=== PATIENT | male | born 1995 | race Caucasian/White ===

== ENCOUNTER 2017-12-03 22:35 | Emergency (ER) | payer SELFPAY ==
[~2017-12-03] VITALS: Ht 172.7 cm; Wt 70.0 kg
[2017-12-03] MEDS ORDERED: SODIUM CHLOR 0.9% 1000 ML INJ 1,000 ML IV ONE (22:53)
[2017-12-03 22:54] VITALS: BP 123/81; PULSE 103; RESP 16; TEMP 98.3; O2SAT 99
[2017-12-03 22:57] VITALS: RESP 16; O2SAT 99
[2017-12-03] MEDS ORDERED: SODIUM CHLORIDE 0.9% FLUSH 10 ML FLUSH IVF PRN (23:00)
[2017-12-03 23:50] LABS: BICARBONATE 25.2 MEQ/L (21.0-32.0); BLOOD UREA NITROGEN 10 MG/DL (7-18); CALCIUM 8.5 MG/DL (8.5-10.1); CHLORIDE 103 MEQ/L (98-107); CREATININE 1.23 MG/DL (0.60-1.30); GLOMERULAR FILTRATION RATE 74 ML/MIN (>89); GLUCOSE,RANDOM 93 MG/DL (74-106); SODIUM (NA) 140 MEQ/L (136-145)
[2017-12-03 23:56] LABS: ACETAMINOPHEN LESS THAN 2.0 MCG/ML (10.0-30.0)
--- NOTE | 2017-12-03 23:59 | PD ---
HPI Chief Complaint: Alcohol/Drug Intoxication Time Seen by Provider: 22:48 Travel History International Travel<30 days: No Contact w/Intl Traveler<30days: No Traveled to known affect area: No History of Present Illness HPI 22yo M presents to the ED via EMS for possible alcohol intoxication. Pt was found in a motel on [address] after police responded to a call because his friends were creating a commotion. Upon arrival, EMS states the pt was a GCS of 5, vital were within normal limits and O2 sat of 100% on room air. Pt was given 2mg of Narcan en route to the ED, without any response. Upon arrival to the hospital, pt became slightly more responsive to external stimuli but maintained a GCS of 5 with stable vitals. [facility] Past Medical History Medical History: Unable to Obtain Immunizations Current: Yes Past Surgical History Surgical History: Unable to Obtain Social History Alcohol Use: Yes Tobacco Use: No Substance Use: No Allergies-Medications (Allergen,Severity, Reaction): Coded Allergies: No Allergy Information Available (Unverified , 12/03/17) Physical Exam Narrative GENERAL: well developed, well nourished obtunded male. SKIN: Warm and dry. Small, superficial abrasion to the left knee. EYES: Pupils equal, round and reactive. No scleral icterus. No injection or drainage. ENT: No nasal bleeding or discharge. Mucous membranes pink and moist. NECK: Trachea midline. No JVD. CARDIOVASCULAR: Regular rate and rhythm. RESPIRATORY: No accessory muscle use. Clear to auscultation. Breath sounds equal bilaterally. GASTROINTESTINAL: Abdomen soft, non-tender, nondistended. Hepatic and splenic margins not palpable. MUSCULOSKELETAL: Extremities without clubbing, cyanosis, or edema. No obvious deformities. NEUROLOGICAL: Obtunded with minimal response to external stimuli. Data Data Last Documented VS Vital Signs Date Time Temp Pulse Resp B/P (MAP) Pulse Ox O2 Delivery O2 Flow Rate FiO2 12/03/17 22:57 16 99 Room Air 12/03/17 22:54 98.3 103 123/81 (95) Orders Orders Basic Metabolic Panel (Bmp) (12/03/17 22:53) Iv Access Insert/Monitor (12/03/17 22:53) Ecg Monitoring (12/03/17 22:53) Oximetry (12/03/17 22:53) Sodium Chloride 0.9% Flush (Ns Flush) (12/03/17 23:00) Sodium Chlor 0.9% 1000 Ml Inj (Ns 1000 M (12/03/17 22:53) Drug Screen, Random Urine (12/03/17 22:53) Alcohol (Ethanol) (12/03/17 22:53) Salicylates (Aspirin) (12/03/17 22:53) Tylenol (Acetaminophen) (12/03/17 22:53) Labs Laboratory Tests Test 12/03/17 23:00 12/03/17 23:15 Blood Urea Nitrogen 10 MG/DL Creatinine 1.23 MG/DL Random Glucose 93 MG/DL Calcium Level 8.5 MG/DL Sodium Level 140 MEQ/L Potassium Level 3.6 MEQ/L Chloride Level 103 MEQ/L Carbon Dioxide Level 25.2 MEQ/L Anion Gap 12 MEQ/L Estimat Glomerular Filtration Rate 74 ML/MIN Salicylates Level 2.7 MG/DL Acetaminophen Level LESS THAN 2.0 MCG/ML Ethyl Alcohol Level 278 MG/DL Urine Opiates Screen NEG Urine Barbiturates Screen NEG Urine Amphetamines Screen NEG Urine Benzodiazepines Screen POS Urine Cocaine Screen POS Urine Cannabinoids Screen POS MDM Medical Decision Making Medical Screen Exam Complete: Yes Emergency Medical Condition: Yes Differential Diagnosis Alcohol intoxication versus metabolic derangement versus polysubstance abuse Narrative Course This is a 22-year-old male who is brought in after being found with decreased level of consciousness at a hotel room. Patient friends state that he was drinking alcohol. They denied drugs of abuse. Patient was sleepy however arousable. His alcohol level was in the 270s. He was also positive for cocaine , cannabinoids, benzos. He is currently sleeping off. He will be discharged when appropriate the sober. Diagnosis Primary Impression: Alcohol intoxication Additional Impression: Polysubstance abuse Additional Instructions: Do not drink alcohol or use drugs. Disposition: 01 DISCHARGE HOME Condition: Stable Epifanio Thompson MD Dec 03, 2017 23:59
[2017-12-04 07:38] VITALS: BP 134/74; PULSE 91; RESP 14; O2SAT 99
--- NOTE | 2017-12-04 07:44 | PD ---
Physical Exam Narrative Patient brought in over night, seen by Dr. Thompson. Allowed to sleep in the ED until sober. Data Data Last Documented VS Vital Signs Date Time Temp Pulse Resp B/P (MAP) Pulse Ox O2 Delivery O2 Flow Rate FiO2 12/04/17 07:38 91 14 134/74 (94) 99 Room Air 12/03/17 22:54 98.3 Orders Orders Basic Metabolic Panel (Bmp) (12/03/17 22:53) Iv Access Insert/Monitor (12/03/17 22:53) Ecg Monitoring (12/03/17 22:53) Oximetry (12/03/17 22:53) Sodium Chloride 0.9% Flush (Ns Flush) (12/03/17 23:00) Sodium Chlor 0.9% 1000 Ml Inj (Ns 1000 M (12/03/17 22:53) Drug Screen, Random Urine (12/03/17 22:53) Alcohol (Ethanol) (12/03/17 22:53) Salicylates (Aspirin) (12/03/17 22:53) Tylenol (Acetaminophen) (12/03/17 22:53) Ed Discharge Order (12/04/17 07:41) Labs Laboratory Tests Test 12/03/17 23:00 12/03/17 23:15 Blood Urea Nitrogen 10 MG/DL Creatinine 1.23 MG/DL Random Glucose 93 MG/DL Calcium Level 8.5 MG/DL Sodium Level 140 MEQ/L Potassium Level 3.6 MEQ/L Chloride Level 103 MEQ/L Carbon Dioxide Level 25.2 MEQ/L Anion Gap 12 MEQ/L Estimat Glomerular Filtration Rate 74 ML/MIN Salicylates Level 2.7 MG/DL Acetaminophen Level LESS THAN 2.0 MCG/ML Ethyl Alcohol Level 278 MG/DL Urine Opiates Screen NEG Urine Barbiturates Screen NEG Urine Amphetamines Screen NEG Urine Benzodiazepines Screen POS Urine Cocaine Screen POS Urine Cannabinoids Screen POS MDM Supervised Visit with JR: No Narrative Course Patient is awake and alert. He says he was partying last night and the last thing her remembers is walking on the beach and "talking to girls." He is here with friends and staying at a hotel. He will call his friends for a ride back to his hotel. He is advised to avoid alcohol and drug use. Advised to return at any time for any worsening symptoms. Diagnosis Primary Impression: Alcohol intoxication Qualified Codes: F10.920 - Alcohol use, unspecified with intoxication, uncomplicated Additional Impression: Polysubstance abuse Patient Instructions: Alcohol Intoxication (ED), General Instructions Additional Instruction: Do not drink alcohol or use drugs. Disposition: 01 DISCHARGE HOME Condition: Stable Mandy Camargo MD Dec 04, 2017 07:44
[2017-12-04 07:46] VITALS: BP 134/74
== END 2017-12-04 08:05 | disposition home or self-care (01) ==
LOC: NEPE 22:35
DX: F10.920 Alcohol use, unspecified with intoxication, uncomplicated (principal); F19.10 Other psychoactive substance abuse, uncomplicated; Y90.8 Blood alcohol level of 240 mg/100 ml or more
CPT/HCPCS: 80048; 80307; 96360; 96361; 99284; J7030